=== PATIENT | male | born 1995 | race Caucasian/White ===

== ENCOUNTER 2020-10-06 08:02 | Emergency (ER) | payer MEDICAID ==
[~2020-10-06] VITALS: Ht 172.7 cm; Wt 102.0 kg
[2020-10-06] MEDS ORDERED: DEXAMETHASONE 10 MG/ML VIAL IV ONE (10:15)
[2020-10-06] MEDS ORDERED: ACETAMINOPHEN 325MG TABLET PO ONE (10:15)
[2020-10-06] MEDS ORDERED: KETOROLAC 60MG/2ML VIAL IM ONE (10:15)
[2020-10-06] MEDS ORDERED: LIDOCAINE 5% PATCH TOP SCH (10:15)
[2020-10-06 10:42] VITALS: BP 168/106
[2020-10-06] MEDS ORDERED: BACL-141 MT (11:13)
[2020-10-06] MEDS ORDERED: IBUP-2029 MT (11:13)
[2020-10-06] MEDS ORDERED: LIDO700A15 TP (11:13)
== END 2020-10-06 11:42 | disposition home or self-care (01) ==
LOC: ER 08:31
DX: M54.41 Lumbago with sciatica, right side (principal); E11.9 Type 2 diabetes mellitus without complications
CPT/HCPCS: 96372; 96374; 99283; J1100; J1885

== ENCOUNTER 2024-01-01 11:07 | Emergency (ER) | payer MEDICAID ==
[~2024-01-01] VITALS: Ht 180.3 cm; Wt 141.0 kg
[~2024-01-01 11:07] MED LIST: BACL-141 MT; IBUP-2029 MT; LIDO700A15 TP
[2024-01-01 11:21] VITALS: O2SAT 97
[2024-01-01 12:40] VITALS: BP 144/70; PULSE 84; RESP 18; TEMP 36.78072; O2SAT 97
[2024-01-01] MEDS: HYDROCODONE/ACETAMINOPHEN 7.5/325MG TABLET PO ONE (12:42)
[2024-01-01] MEDS: KETOROLAC 30MG/ML VIAL IM ONE (12:42)
== END 2024-01-01 12:40 | disposition home or self-care (01) ==
LOC: ER 11:07
DX: M54.9 Dorsalgia, unspecified (principal); E11.9 Type 2 diabetes mellitus without complications; Z98.890 Other specified postprocedural states
CPT/HCPCS: 96372; 99283; J1885; Z7610